=== PATIENT | male | born 1995 | race Caucasian/White ===

== ENCOUNTER 2025-03-05 11:31 | Emergency (ER) | payer OTHER ==
[2025-03-05] MEDS: Ketorolac 60 MG/2 ML SDV IM ONE (12:29)
== END 2025-03-05 14:35 | disposition home or self-care (01) ==
LOC: JD.ED 11:31 → EDBD 11:31 → MERGE 11:31 → JD.ED 14:35
DX: M54.50 Low back pain, unspecified (principal); I10 Essential (primary) hypertension; F17.200 Nicotine dependence, unspecified, uncomplicated; Z79.899 Other long term (current) drug therapy
CPT/HCPCS: 72100; 96372; 99283; A9270; J1171; J1885